=== PATIENT | female | born 1985 | race Asian ===

== ENCOUNTER 2021-01-24 12:33 | Emergency (ER) | payer MEDICAID ==
[~2021-01-24] VITALS: Ht 149.9 cm; Wt 47.7 kg
[2021-01-24] MEDS ORDERED: ACET325S20 PR (12:50)
[2021-01-24] MEDS ORDERED: PERTUSS(ACELL),DIPH,TET VAC/PF 0.5 ML SYRINGE IM. ONE (13:30)
[2021-01-24] MEDS ORDERED: AMOX TR/POT CLAV 875 MG/125 MG TABLET PO ONE (13:30)
[2021-01-24 13:41] VITALS: BP 136/42
== END 2021-01-24 13:41 | disposition home or self-care (01) ==
LOC: EMS 12:37
DX: S01.85XA Open bite of other part of head, initial encounter (principal); Z88.8 Allergy status to other drugs, medicaments and biological substances; W54.0XXA Bitten by dog, initial encounter; Y93.89 Activity, other specified; Y92.89 Other specified places as the place of occurrence of the external cause; Y99.8 Other external cause status
CPT/HCPCS: 90471; 90715; 99283